=== PATIENT | male | born 1955 | race Caucasian/White ===

== ENCOUNTER 2018-04-22 18:44 | Inpatient (IN) | payer OTHER ==
[2018-04-22] MEDS ORDERED: ASPIRIN 81 MG CHEWABLE TAB ONE (19:07)
[2018-04-22] MEDS ORDERED: NITROGLYCERIN 0.4 MG BTL SL ONE ×2 (19:07→19:12)
[2018-04-22] MEDS ORDERED: ASPIRIN 81 MG CHEWABLE TAB PO ONE (19:12)
--- NOTE | 2018-04-22 19:18 | EDPHY ---
H & P Stated Complaint: sharp sternum pain, worked up at [employer], rad both arms and feet. Time Seen by Provider: 04/22/18 18:57 HPI/ROS: CHIEF COMPLAINT: Chest pain HISTORY OF PRESENT ILLNESS: 62-year-old male presents emergency department reporting that at 4:00 p.m. today he developed severe substernal chest discomfort with radiation into both arms. Reports that both arms feel achy. He reports feeling quite weak and dizzy. Patient had episode of similar discomfort this morning, although not quite as severe. He reports about 20 min episode of substernal chest discomfort with radiation into the arms. Patient was evaluated at [facility] at that time. Patient does state that he has a history of GERD but this feels different because it occurred while he was sitting upright. REVIEW OF SYSTEMS: Limited secondary to patient's clinical condition. Denies cold or cough symptoms. Denies prior history of chest discomfort. PAST MEDICAL HISTORY: Diabetes, hypertension, high cholesterol, peptic ulcer disease. Patient reports a strong family history of coronary artery disease with his mother dying of a heart attack at 42. SOCIAL HISTORY: Nonsmoker. VITAL SIGNS Reviewed by me. 158/102. GENERAL: Overweight, lying with his eyes closed. Reports being in severe pain , 10/10. HEENT: Atraumatic. Eyes: No icterus, no injection. Mouth: moist mucous membranes. No erythema or lesions. Neck: supple with no adenopathy. No JVD. LUNGS: Diminished breath sounds throughout. No wheezes. CARDIAC: Slightly distant, regular rate and rhythm. ABDOMEN: Soft, obese, nontender. BACK: No CVA tenderness. EXTREMITIES: No trauma. No edema. Range of motion is normal throughout. NEURO: Alert and oriented, grossly nonfocal. SKIN: Warm and dry, no rash. No diaphoresis. PSYCHIATRIC: Normal mentation, no agitation. - Personal History Current Tetanus/Diphtheria Vaccine: Unsure - Medical/Surgical History Hx Asthma: No Hx Chronic Respiratory Disease: No Hx Diabetes: Yes Hx Cardiac Disease: No Hx Renal Disease: No Hx Cirrhosis: No Hx Alcoholism: No Hx HIV/AIDS: No Hx Splenectomy or Spleen Trauma: No Other PMH: diabetes/hernias/umbilical hernia, GERD - Social History Smoking Status: Former smoker Constitutional: Initial Vital Signs Temperature (C) 36.2 C 04/22/18 18:48 Heart Rate 70 04/22/18 18:48 Respiratory Rate 16 04/22/18 18:48 Blood Pressure 152/102 H 04/22/18 18:48 O2 Sat (%) 95 04/22/18 18:48 O2 Delivery Mode Nasal Cannula O2 (L/minute) 6 Allergies/Adverse Reactions: No Known Allergies Allergy (Verified 04/22/18 18:48) Home Medications: Medication Instructions Recorded Aspirin EC [Aspirin EC 81 mg (*)] 81 mg PO DAILY 04/22/18 Cimetidine 200 mg PO DAILY 04/22/18 FENOFIBRATE 160 mg PO DAILY 04/22/18 Gemfibrozil [Lopid 600 MG (*)] 600 mg PO BID 04/22/18 Insulin Detemir [Levemir] 25 unit SQ DAILY 04/22/18 Levothyroxine [Synthroid 150 mcg 150 mcg PO DAILY06 04/22/18 (*)] Lisinopril [Zestril 10 mg (*)] 10 mg PO DAILY 04/22/18 Sitagliptin Phos/Metformin HCl 1 each PO BID 04/22/18 [Janumet 50-1,000 mg Tablet] glipiZIDE [Glucotrol] 5 mg PO BID 04/22/18 Medical Decision Making - Diagnostics EKG Interpretation: 12-LEAD EKG: Please see the full report in [facility]. My interpretation: Acute anterior infarct with ST elevation significant in V1 and upsloping ST segments in V2 V3 Imaging Results: Imaging Impressions Chest X-Ray 04/22/18 19:15 Impression: 1. Findings of congestive heart failure with possible pending pulmonary edema. 2. Basilar atelectasis with no findings to suggest pneumonia. Portable chest x-ray obtained. No significant mediastinal widening. Imaging: I viewed and interpreted images myself ED Course/Re-evaluation: EKG obtained immediately on patient's arrival. EKG read by myself as demonstrating an acute anterior NE with ST elevation in V1 V2 V3. Patient received aspirin 324 mg as well as his 1st nitroglycerin. Cardiac alert was immediately called. Dr. Torres returned the call at 7:15 p.m.. Patient's bedside troponin is positive at 0.62. 740 p.m. Patient received nitroglycerin x3 with only slight improvement in his chest discomfort, from 10/10 to 8/10. He reports feeling poorly. Dr. Prosper Torres at bedside. Patient received Plavix 600 mg as well as 2 mg of morphine. He was transported to the clinical laboratory director emergently. Critical care time spent by me, Dr. Anna exclusively with this patient was 35 minutes, exclusive of PA time and exclusive of procedures. The organ system at risk was cardiac and I gave nitroglycerin, aspirin, Plavix, activated the clinical laboratory director, discussed with Dr. Prosper Torres to prevent worsening of the patients condition. Critical care time included obtaining history, performing a physical exam, bedside monitoring of interventions, collecting and interpreting tests and discussion with consultants but not including time spent performing procedures. Differential Diagnosis: After history and physical examination, the differential for chest pain was considered, including but not limited to, acute myocardial infarction,, acute coronary syndrome, pulmonary embolus, chest wall pain, pleural inflammation and pulmonary infectious causes. - Data Points Laboratory Results: Laboratory Results 04/22/18 19:00 04/22/18 19:00 04/22/18 04/22/18 04/22/18 19:06 19:00 19:00 WBC RBC Hgb Hct MCV MCH MCHC RDW Plt Count MPV Neut % (Auto) Lymph % (Auto) Butts % (Auto) Eos % (Auto) Baso % (Auto) Nucleat RBC Rel Count Absolute Neuts (auto) Absolute Lymphs (auto) Absolute Monos (auto) Absolute Eos (auto) Absolute Basos (auto) Absolute Nucleated RBC Immature Gran % Immature Gran # PT 12.9 SEC SEC (12.0-15.0) INR 0.95 (0.83-1.16) APTT 31.2 SEC SEC (23.0-38.0) Sodium 134 mEq/L L mEq/L (135-145) Potassium 4.3 mEq/L mEq/L (3.5-5.2) Chloride 96 mEq/L L mEq/L (97-110) Carbon Dioxide 24 mEq/l mEq/l (22-31) Anion Gap 14 mEq/L mEq/L (6-14) BUN 23 mg/dL mg/dL (7-23) Creatinine 1.1 mg/dL mg/dL (0.7-1.3) Estimated GFR > 60 Glucose 252 mg/dL H mg/dL (70-100) Calcium 10.3 mg/dL mg/dL (8.5-10.4) Total Bilirubin 0.5 mg/dL mg/dL (0.1-1.4) Conjugated Bilirubin 0.3 mg/dL mg/dL (0.0-0.5) Unconjugated Bilirubin 0.2 mg/dL mg/dL (0.0-1.1) AST 32 IU/L IU/L (17-59) ALT 39 IU/L IU/L (21-72) Alkaline Phosphatase 100 IU/L IU/L (38-126) POC Troponin I 0.62 ng/mL H ng/mL (0.00-0.08) Troponin I 0.460 ng/mL H ng/mL (0.000-0.034) Total Protein 8.0 g/dL g/dL (6.3-8.2) Albumin 4.8 g/dL g/dL (3.5-5.0) Lipase 751 IU/L H IU/L (23-300) 04/22/18 19:00 WBC 15.40 10^3/uL H 10^3/uL (3.80-9.50) RBC 5.59 10^6/uL 10^6/uL (4.40-6.38) Hgb 16.8 g/dL g/dL (13.7-17.5) Hct 49.3 % % (40.0-51.0) MCV 88.2 fL fL (81.5-99.8) MCH 30.1 pg pg (27.9-34.1) MCHC 34.1 g/dL g/dL (32.4-36.7) RDW 12.7 % % (11.5-15.2) Plt Count 232 10^3/uL 10^3/uL (150-400) MPV 11.4 fL fL (8.7-11.7) Neut % (Auto) 78.8 % H % (39.3-74.2) Lymph % (Auto) 14.3 % L % (15.0-45.0) Butts % (Auto) 5.2 % % (4.5-13.0) Eos % (Auto) 0.7 % % (0.6-7.6) Baso % (Auto) 0.4 % % (0.3-1.7) Nucleat RBC Rel Count 0.0 % % (0.0-0.2) Absolute Neuts (auto) 12.13 10^3/uL H 10^3/uL (1.70-6.50) Absolute Lymphs (auto) 2.20 10^3/uL 10^3/uL (1.00-3.00) Absolute Monos (auto) 0.80 10^3/uL 10^3/uL (0.30-0.80) Absolute Eos (auto) 0.11 10^3/uL 10^3/uL (0.03-0.40) Absolute Basos (auto) 0.06 10^3/uL 10^3/uL (0.02-0.10) Absolute Nucleated RBC 0.00 10^3/uL 10^3/uL (0-0.01) Immature Gran % 0.6 % % (0.0-1.1) Immature Gran # 0.10 10^3/uL 10^3/uL (0.00-0.10) PT INR APTT Sodium Potassium Chloride Carbon Dioxide Anion Gap BUN Creatinine Estimated GFR Glucose Calcium Total Bilirubin Conjugated Bilirubin Unconjugated Bilirubin AST ALT Alkaline Phosphatase POC Troponin I Troponin I Total Protein Albumin Lipase Medications Given: Nitroglycerin (Nitrostat) 0.4 mg SL Q5M PRN PRN Reason: Chest Pain Last Admin: 04/22/18 19:27 Dose: 0.4 mg Discontinued Medications Aspirin (Aspirin) 324 mg PO EDNOW ONE Stop: 04/22/18 19:13 Last Admin: 04/22/18 19:14 Dose: 324 mg Clopidogrel Bisulfate (Plavix) 600 mg PO ONCE ONE Stop: 04/22/18 19:41 Last Admin: 04/22/18 19:43 Dose: 600 mg Morphine Sulfate (Morphine) 1 mg IVP EDNOW ONE Stop: 04/22/18 19:42 Last Admin: 04/22/18 19:47 Dose: Not Given Morphine Sulfate (Morphine) 2 mg IVP EDNOW ONE Stop: 04/22/18 19:48 Last Admin: 04/22/18 19:47 Dose: 2 mg Nitroglycerin (Nitrostat) 0.4 mg SL EDNOW ONE Stop: 04/22/18 19:13 Last Admin: 04/22/18 19:11 Dose: 0.4 mg Point of Care Test Results: Chemistry 04/22/18 19:06 POC Troponin I 0.62 ng/mL H ng/mL (0.00-0.08) Departure - Departure Disposition: To OP Cath/Surgery Clinical Impression: ST elevation (STEMI) myocardial infarction involving left anterior descending coronary artery, Acute anterior wall NE, Acute coronary syndrome Condition: Serious
[2018-04-22] MEDS: NITROGLYCERIN 0.4 MG BTL SL PRN ×2 (19:21→19:27)
[2018-04-22 19:37] LABS: PLATELET COUNT 232 10^3/uL (150-400)
[2018-04-22] MEDS ORDERED: fentaNYL 100 MCG/2 ML INJ ONE (19:38)
[2018-04-22] MEDS ORDERED: MIDAZOLAM 2 MG/2 ML VIAL ONE (19:38)
[2018-04-22] MEDS ORDERED: LIDOCAINE 1% 300 MG/30 ML SDV ONE (19:38)
[2018-04-22] MEDS ORDERED: IOPAMIDOL (ISOVUE-370) 150 ML BTL IV ONE (19:38)
[2018-04-22] MEDS ORDERED: CLOPIDOGREL BISULFATE 75 MG TAB PO ONE (19:40)
[2018-04-22] MEDS ORDERED: VERAPAMIL 5 MG/2 ML VIAL ONE (19:55)
[2018-04-22] MEDS ORDERED: BIVALIRUDIN 250 MG/5 ML VIAL IV ONE (19:55)
[2018-04-22 19:56] LABS: INR 0.95 (0.83-1.16); PROTIME(PATIENT) 12.9 SEC (12.0-15.0)
[2018-04-22] MEDS ORDERED: METOPROLOL TARTRATE 5 MG/5 ML INJ ONE (20:13)
[2018-04-22] MEDS ORDERED: LORazepam 2 MG/ML INJ IVP PRN (20:41)
--- NOTE | 2018-04-22 20:56 | PDDXCAT ---
Diagnostic Cath Note - . Date: 04/22/18 Swedger: Brian Indication: other (STEMI anterior) - Procedure Access: right wrist Procedure: left heart catheterization, coronary angiography, left ventriculogram - Materials Left Heart Cath size: 6F Left Heart Cath materials: standard multipack (JL4, JR4, pigtail) - Findings-Left Heart Catheterization LM: Unobstructed LAD: 100% OCCLUDED LCX: [place] 95% stenosis. Large OM RCA: Dominant: Unobstructed. EDP: 35 mmHg post PCI LVEF: 30% Wall motion: Large area of anterior apical akinesis Complications: none Estimated blood loss: <50ml Closure method: TR Band Assessment: STEMI with thrombotic occlusion of the LAD. Residual crital circumflex stenosis. Severe LV dysfunction with kody-apical akinesis and elevated LVEDP Plan: PCI Intervention: Procedure: PCI of the LAD with placement of 4.0 by 24 Synergy Stent For details please see the attached computer report. The initial images were obtained with a 6 pashto JL4 guiding catheter. After confirming diagnosis, we proceeded with emergency PCI. Patient was given 600 mg of Plavix in the ed. He was started on Angiomax once sheath was placed. Using a 0.014 intuition wire, the LAD was entered. The wire advanced easily to the apical LAD territory. Initial inflation was performed with a 2 mm balloon re- establishing antegrade flow. A 4.0 by 24 mm Synergy stent was placed on the wire and positioned across the stenosis. It was deployed using a single inflation to 11 bell. Repeat angiogram revealed JE 3 flow to the apex. The principle diagonal had JE 1-2 flow. Therapeutic ACT was confirmed. Diagnostic angiogram of the RCA and ventricle was performed. Telemetry suggested recurrent ST elevation. A 5french JL4 was used to re-look at the LAD. Stent was widely patent. Improved flow in the principle diagonal. Symptoms had improved with stable hemodynamics. He was administer 15 mg of metoprolol in a divided fashion. He is taken to the ICU in stable but critical condition. Will consider PCI of the circumflex prior to discharge. Patient Problems: Problems Problem Status Onset ST elevation (STEMI) myocardial infarction involving left anterior descending coronary artery Acute
--- NOTE | 2018-04-22 21:00 | SOAPPROG ---
[facility] Progress Note Assessment/Plan: Assessment: Problem List: 1. STEMI with occlusion of the LAD 2. Residual circumflex stenosis 3. ischemic cardiomyopathy: acute 4. hypertension 5. Hyperlipidemia 6. Diabetes type 2 7. Hypothyroidism 8. Obesity 04/22/18 20:57 Procedure: PCI of the LAD 04/22 Objective: Vital Signs Temp Pulse Resp BP Pulse Ox 36.7 C 74 13 123/82 H 93 04/22/18 19:50 04/22/18 19:50 04/22/18 19:50 04/22/18 19:50 04/22/18 19:50 04/21/18 04/22/18 04/23/18 05:59 05:59 05:59 Intake Total 2350 Balance 2350 PT 12.9 SEC (12.0-15.0) 04/22/18 19:00 INR 0.95 (0.83-1.16) 04/22/18 19:00 Laboratory Tests 04/22/18 04/22/18 04/22/18 19:00 19:00 19:06 WBC 15.40 H Hgb 16.8 Hct 49.3 Sodium 134 L Glucose 252 H POC Troponin I 0.62 H Troponin I 0.460 H Lipase 751 H Physical Exam - Physical Exam General Appearance: mild distress Neck: supple Respiratory: lungs clear Cardiac/Chest: regular rate, rhythm, gallop, No JVD Peripheral Pulses: 1+: carotid (R), carotid (L), femoral (R), femoral (L) Abdomen: normal bowel sounds, non-tender Skin: warm/dry, No cyanosis, No rash Extremities: normal range of motion, non-tender, No pedal edema, No calf tenderness Neuro/Psych: no motor/sensory deficits, alert, No facial droop ICD10 Worksheet Patient Problems: Problems Problem Status Onset ST elevation (STEMI) myocardial infarction involving left anterior descending coronary artery Acute
--- NOTE | 2018-04-22 21:03 | GHP ---
[f rep st] HISTORY AND PHYSICAL CARDIAC ALERT 04/22/2018 I am called to the emergency department by Dr. Ginette Anna to visit with the patient. He is A 62 YO white male. He was in his usual state of good health until 2 days ago, when he developed the acute onset of substernal chest pain. He thought this was reflux. The pain waxed and waned. Today, he was at his desk, again developed symptoms. He went to the [facility], where he was evaluated. He was told at that point in time that this was reflux. He went home. He developed again the acute onset of severe 10/10 discomfort. It was associated with diaphoresis, shortness of breath, nausea. He came to the emergency department by car. On arrival, EKG showed significant ST elevation in his anterior precordial leads. On my arrival, he is having 10/ 10 discomfort. He is diaphoretic and sweaty. CARDIAC RISK: Includes hypertension, hyperlipidemia, type 2 diabetes. ALLERGIES: He has no known drug allergies. MEDICINES: Reviewed and in the chart per pharmacy. PHYSICAL EXAMINATION: VITAL SIGNS: On my arrival, heart rate is 82, blood pressure 123/70, oxygen saturation 92%, respiratory rate 18. GENERAL: This is a morbidly obese male in moderate to severe distress. He is diaphoretic, sweaty. HEENT: Significant for JVP at 13 cm. CHEST: Reveals his lungs to be clear. Palpation of the anterior chest wall reveals no RV lift. CARDIAC: He has a regular rate and rhythm with an S4 gallop. Radial pulses are +2. His carotid pulses are +2. Femoral pulses are +1. Dorsalis pedis pulses are +2 and equal. SKIN: There is no livedo reticularis. There is no rash. ABDOMEN: Soft, nontender, with no tenderness to palpation. He has no rebound or guarding. NEUROLOGICALLY: He is alert and oriented. He is clearly anxious. He is moving extremities well. Sensation grossly intact. DIAGNOSTIC TESTING: EKG shows acute anterior ST elevation. LABORATORY DATA: Pending. IMPRESSION: ST-segment elevation myocardial infarction involving the anterior wall. In light of morbid obesity and increased risk, will plan for radial artery access from the right. Risk stratification/modification will be discussed postprocedure. Differential diagnosis will be broadened post procedure if need be. At the present time, he is hemodynamically stable. Risks and benefits of cardiac cath and stent placement were discussed. We will proceed urgently. /[id number]/MODL MTDD
--- NOTE | 2018-04-22 21:45 | CPEKG ---
Test Reason : OPEN Blood Pressure : / mmHG Vent. Rate : 068 BPM Atrial Rate : 068 BPM P-R Int : 144 ms QRS Dur : 097 ms QT Int : 401 ms P-R-T Axes : 035 023 061 degrees QTc Int : 427 ms Sinus rhythm Ventricular premature complex Probable anterior infarct, acute Confirmed by Kamar Miner ([id number]) on 04/22/2018 9:44:51 PM Referred By: Ginette Anna Confirmed By:Kamar Miner
[2018-04-22 23:02] LABS: CREATINE KINASE 4388 IU/L (0-224)
[2018-04-23 01:57] LABS: CREATINE KINASE 5644 IU/L (0-224)
[2018-04-23 04:31] LABS: CREATINE KINASE 4654 IU/L (0-224)
[2018-04-23 06:39] LABS: PLATELET COUNT 218 10^3/uL (150-400)
--- NOTE | 2018-04-23 07:33 | SOAPPROG ---
[facility] Progress Note Assessment/Plan: Assessment: Problem List: 1. STEMI with occlusion of the LAD 2. Residual circumflex stenosis 3. ischemic cardiomyopathy: acute 4. hypertension 5. Hyperlipidemia 6. Diabetes type 2 7. Hypothyroidism 8. Obesity 04/22/18 20:57 Procedure: PCI of the LAD 04/2204/23/18 07:30 Day 1 s/p anterior [place] with PCI of the LAD. residual Cx stenosis. No angina or heart failure. Stable rhythm. Tolerating medical therapy well. CPK, troponin have peaked. Transfer telemetry Phase 1 rehabilitation. Await recovery of the anterior wall PCI of the Cx. at some point. Echo pending for LV recovery. Lipids and A1c pending for risk evaluation. Subjective: Doing well. Chest pain down to 10. No nausea or vomiting. Denies PND, orthopnea. Tele stable overnight. CPK and troponin have peaked. Objective: Medications Generic Name Dose Route Start Last Admin Trade Name Freq PRN Reason Stop Dose Admin Insulin Glargine 25 units 04/23/18 09:00 Lantus Syringe SC 10/20/18 08:59 DAILY [facility] Aspirin Buffered 81 mg 04/23/18 09:00 Aspirin Ec PO 10/20/18 08:59 DAILY [facility] Atorvastatin Calcium 80 mg 04/23/18 09:00 Lipitor PO 10/20/18 08:59 DAILY [facility] Carvedilol 6.25 mg 04/23/18 08:00 Coreg PO 10/20/18 07:59 BIDMEAL [facility] Eplerenone 25 mg 04/23/18 09:00 Inspra PO 10/20/18 08:59 DAILY [facility] Furosemide 20 mg 04/23/18 09:00 Lasix PO 10/20/18 08:59 DAILY [facility] Glipizide 5 mg 04/23/18 07:30 Glucotrol PO 10/20/18 07:29 BIDAC [facility] Levothyroxine Sodium 150 mcg 04/23/18 06:00 Synthroid PO 10/20/18 05:59 DAILY06 [facility] Lisinopril 2.5 mg 04/23/18 09:00 Zestril PO 10/20/18 08:59 DAILY [facility] Vital Signs Temp Pulse Resp BP Pulse Ox 36.9 C 83 15 101/81 H 96 04/23/18 05:00 04/23/18 06:00 04/23/18 06:00 04/23/18 06:00 04/23/18 06:00 Laboratory Results 04/23/18 06:20 04/23/18 06:20 04/22/18 04/23/18 04/24/18 05:59 05:59 05:59 Intake Total 3200 Output Total 1050 Balance 2150 PT 12.9 SEC (12.0-15.0) 04/22/18 19:00 INR 0.95 (0.83-1.16) 04/22/18 19:00 Laboratory Tests 04/22/18 04/23/18 04/23/18 21:37 00:42 06:20 Creatinine 0.9 Glucose 200 H Creatine Kinase 4388 H 5644 H CK-MB (CK-2) Fraction 134.00 H 211.00 H Troponin I 113.000 H 197.000 H NT-Pro-B Natriuret Pep 797 H Physical Exam - Physical Exam General Appearance: alert, no apparent distress EENT: normal ENT inspection Neck: full range of motion Respiratory: rales Cardiac/Chest: normal peripheral pulses, regular rate, rhythm, gallop, No edema , No JVD Peripheral Pulses: 1+: carotid (R), carotid (L) Abdomen: normal bowel sounds, non-tender, soft Back: Normal inspection, No CVA tenderness Skin: diaphoresis Extremities: normal range of motion, non-tender Neuro/Psych: no motor/sensory deficits, alert, No facial droop ICD10 Worksheet Patient Problems: Problems Problem Status Onset Acute anterior wall [place] Acute Acute coronary syndrome Acute ST elevation (STEMI) myocardial infarction involving left anterior descending coronary artery Acute Review of Systems - Review of Systems Constitutional: denies: chills, fever EENTM: no symptoms reported Respiratory: no symptoms reported Cardiac: chest pain. denies: edema, irregular heart rate, lightheadedness, palpitations, syncope Gastrointestinal/Abdominal: no symptoms reported Genitourinary: no symptoms Musculoskelatal: no symptoms Skin: no symptoms Neurological: no symptoms Hematologic/Lymphatic: no symptoms reported Immunologic/allergic: no symptoms reported
[2018-04-23] MEDS: LEVOTHYROXINE 150 MCG TAB PO SCH (07:39)
[2018-04-23] MEDS: glipiZIDE 5 MG TAB PO SCH ×2 (07:40→18:01)
[2018-04-23 08:29] LABS: CREATINE KINASE 3005 IU/L (0-224)
[2018-04-23] MEDS: ATORVASTATIN CALCIUM 40 MG TAB PO SCH (08:40)
[2018-04-23] MEDS: LISINOPRIL 5 MG TAB PO SCH (08:41)
[2018-04-23] MEDS: ASPIRIN EC 81 MG TAB PO SCH (08:41)
[2018-04-23] MEDS: EPLERENONE 25 MG TAB PO SCH (08:41)
[2018-04-23] MEDS: CARVEDILOL 6.25 MG TAB PO SCH ×2 (08:42→18:01)
[2018-04-23] MEDS: FUROSEMIDE 20 MG TAB PO SCH (08:42)
[2018-04-23] MEDS: INSULIN GLARGINE 100 UNITS/ML UNIT SC SCH (09:43)
--- NOTE | 2018-04-23 10:45 | PDMN ---
Medical Necessity Medical necessity: MCG M230 NM- 2 days: acute STEMI- OP: urgent LHC, angio , LVR -PCI to LAD
--- NOTE | 2018-04-23 11:22 | ECHO ---
[email or web address] [address] Main: [phone] Fax: Transthoracic Echocardiogram Name: DOMI GRIMES MR#: [id number] Study Date: 04/23/2018 Study Time: 10:33 AM Date of : 1955 Age: 62 year(s) Height: 188 cm (74 in.) Weight: 127.01 kg (280 lb.) BSA: 2.51 m2 Gender: Male Examination: Echo Indication: S/P RI; assess LV recovery Image Quality: Adequate Contrast: Requested by: Prosper Torres BP: 107 mmHg/67 mmHg Heart Rate: Rhythm: Indication: S/P RI; assess LV recovery Procedure Staff Wire Spinner: Cherie Rouse [facility] Reading Physician: Brandon Nguyen MD Requesting Provider: Conclusions: Normal size left ventricle. Mild concentric LV hypertrophy. EF is 38 %. The basal anteroseptal, mid anteroseptal, mid inferoseptal, mid anterolateral, apical septal, apical lateral and apex No LV apical thrombus. Normal RV function. Mild mitral valve regurgitation is present. The aortic valve is tri-leaflet. No aortic valve stenosis is present. Mild tricuspid regurgitation is present. Right ventricular systolic pressure measures 48mmHg. The pulmonary artery pressure is mild to moderately increased. There is no previous echocardiogram for comparison. Measurements: Chambers Valvular Assessment AV/MV Valvular Assessment TV/PV Normal Normal Normal Name Value Range Name Value Range Name Value Range Ao Consuelo (MM): 3.4 cm (2.2 cm-3.7 AV Vmax: 1.33 m/s (1 m/s-1.7 TR Vmax: 3.10 mm/s ( - ) cm) m/s) TR PGmax: 38 mmHg ( - ) IVSd (2D): 1.2 cm (0.6 cm-1.1 AV maxP mmHg ( - ) syst. PAP: 48 mmHg ( - ) cm) LVOT Vmax: 1.18 m/s (0.7 m/s-1.1 PV Vmax: 0.85 m/s (0.6 m/s-0.9 LVDd (2D): 5.2 cm (4.2 cm-5.9 m/s) m/s) cm) DEDE (Vmax): 2.8 cm2 ( - ) PV PGmax: 3 mmHg ( - ) LVDs (2D): 4.1 cm (2.1 cm-4 MV E Vmax: 0.99 m/s ( - ) cm) MV A Vmax: 0.69 m/s ( - ) LVPWd (2D): 1.1 cm (0.6 cm-1 MV E/A: 1.43 ( - ) cm) LVOTd 2.0 cm 2.0 cm mm Patient: DOMI GRIMES Study Date: 04/23/2018 Page 1 of 3 10:33 AM LVEF (BP): 38 % (>=55 %) RVDd(2D): 3.5 cm (1.9 cm-3.8 cmmm) Continued Measurements: Chambers Valvular Assessment AV/MV Valvular Assessment TV/PV Name Value Name Value Name Value LADs: 3.9 cm MV DecTime: 197 m/s CVP (est.): 10 mmHg LADs Lon.7 cm MV E' Septal: 0.04 m/s LA Area: 17.7 cm2 MV E/E' Septal: 22.10 LA Volume: 49 ml MV E/E' Lateral: 18.50 LA Volume Index: 19.5 ml/m2 TAPSE: 2.2 cm RA Area: 16.5 cm2 Additional Vessels Name Value Ao Ascendin.8 cm Findings: Left Ventricle: Normal size left ventricle. Mild concentric LV hypertrophy. Moderately reduced systolic LV function. EF is 38 %. The basal anteroseptal, mid anteroseptal, mid inferoseptal, mid anterolateral, apical septal, apical lateral and apex wall segments are hypokinetic. All remaining scored wall segments are normal. Grade 2 diastolic dysfunction (pseudonormalized LV filling pattern). Elevated left ventricular filling pressures.. No LV apical thrombus. False tendon noted in LV apex. Right Ventricle: Normal size right ventricle. Normal RV function. Left Atrium: The left atrium is normal in size. Right Atrium: The right atrium is normal in size. Mitral Valve: There is mild thickening of the mitral valve leaflets. Mild mitral valve regurgitation is present. No mitral stenosis is present. Aortic Valve: The aortic valve is tri-leaflet. Minimal aortic cusp calcification is noted. There is no aortic valve regurgitation. No aortic valve stenosis is present. Tricuspid Valve: The tricuspid valve is normal in appearance and function. Mild tricuspid regurgitation is present. Right ventricular systolic pressure measures 48mmHg. The pulmonary artery pressure is mild to moderately increased. Pulmonic Valve: Pulmonary valve not well visualized. Trivial pulmonic valve regurgitation. Aorta: Normal size aortic root measuring 3.4 cm. Normal size ascending aorta measuring 3.8 cm. IVC: The IVC is mildly dilated. There is less than 50% respiratory excursion. Pericardium: Trivial pericardial effusion. There is pericardial fat. (No Signature Object) Wall Motion Scores Patient: DOMI GRIMES Study Date: 04/23/2018 Page 2 of 3 10:33 AM Patient: DOMI GRIMES Study Date: 04/23/2018 Page 3 of 3 10:33 AM [id number]
[2018-04-23] MEDS: CLOPIDOGREL BISULFATE 75 MG TAB PO SCH (13:02)
[2018-04-23 16:17] LABS: CREATINE KINASE 1429 IU/L (0-224)
[2018-04-23] MEDS ORDERED: AMIODARONE HCL 150 MG/100 ML BAG (1.5 MG/ML) IV ONE ×2 (16:37→20:58)
[2018-04-23] MEDS ORDERED: APIXABAN 5 MG TAB PO SCH (16:45)
[2018-04-23] MEDS ORDERED: HEPARIN 10,000 UNIT/10 ML MDV (1,000 UNIT/ML) IVP PRN (16:57)
[2018-04-23] MEDS ORDERED: AMIODARONE HCL 200 ML IV ONE (17:00)
[2018-04-23] MEDS ORDERED: AMIODARONE HCL 100 ML IV ONE ×2 (17:00→21:00)
[2018-04-23] MEDS ORDERED: AMIODARONE HCL 150 MG in D5W 100 ML IV ONE (17:00)
[2018-04-23] MEDS: HEPARIN/DEXTROSE 500 ML IV SCH (17:12)
[2018-04-23] MEDS ORDERED: ONDANSETRON 4 MG/2 ML VIAL ONE (19:10)
[2018-04-23] MEDS ORDERED: ONDANSETRON 4 MG/2 ML VIAL IVP PRN (19:30)
--- NOTE | 2018-04-23 20:06 | ASMTCMCOM ---
CM Note CM Note Notes: Reviewed chart. Pt admitted with sharp sternal chest pain, secondary to a STEMI with LAD occlusion. Pt taken directly to laborer syrup machine. History includes HTN, hyperlipidemia, DM type 2, obesity, hypothyroid. Pt is single and lives in [place]. Discharge needs remain unclear at this time. No PT/OT orders. Anticipate pt will likely discharge home independently when medically stable. CM will continue to follow for any potential needs. Discharge Plan: Likely home independent Date Signed: 04/23/2018 08:05 PM Electronically Signed By:Jeannine Martinez RN
[2018-04-23] MEDS ORDERED: AMIODARONE 6HR INFSN (ORDER 2/3) PREMIX IV ONE (21:00)
[2018-04-23] MEDS ORDERED: AMIODARONE TACHY-18HR INFSN (ORDER 3/3) IV ONE (23:00)
[2018-04-24] MEDS ORDERED: AMIODARONE 18HR INFSN (ORDER 3/3) IV ONE (03:00)
[2018-04-24] MEDS: HEPARIN/DEXTROSE 500 ML IV SCH (03:34)
[2018-04-24] MEDS: LEVOTHYROXINE 150 MCG TAB PO SCH (05:37)
[2018-04-24] MEDS: INSULIN GLARGINE 100 UNITS/ML UNIT SC SCH (08:10)
[2018-04-24] MEDS: glipiZIDE 5 MG TAB PO SCH (08:12)
[2018-04-24] MEDS: CARVEDILOL 6.25 MG TAB PO SCH ×2 (08:12→17:33)
[2018-04-24] MEDS: EPLERENONE 25 MG TAB PO SCH (08:30)
[2018-04-24] MEDS: FUROSEMIDE 20 MG TAB PO SCH (08:30)
[2018-04-24] MEDS: CLOPIDOGREL BISULFATE 75 MG TAB PO SCH (08:30)
[2018-04-24] MEDS: LISINOPRIL 5 MG TAB PO SCH (08:30)
[2018-04-24] MEDS: ASPIRIN EC 81 MG TAB PO SCH (08:30)
[2018-04-24] MEDS: ATORVASTATIN CALCIUM 40 MG TAB PO SCH (08:30)
[2018-04-24] MEDS ORDERED: RIVAROXABAN 20 MG TAB PO SCH (10:15)
[2018-04-24 10:37] LABS: PLATELET COUNT 142 10^3/uL (150-400)
--- NOTE | 2018-04-24 10:37 | CPEKG ---
Test Reason : OPEN Blood Pressure : / mmHG Vent. Rate : 074 BPM Atrial Rate : 075 BPM P-R Int : 134 ms QRS Dur : 096 ms QT Int : 386 ms P-R-T Axes : 045 059 061 degrees QTc Int : 429 ms Sinus rhythm Anterolateral infarct, recent Minimal ST elevation, inferior leads Confirmed by Brandon Nguyen ([id number]) on 04/24/2018 10:37:20 AM Referred By: Prosper Torres Confirmed By:Brandon Nguyen
--- NOTE | 2018-04-24 10:37 | CPEKG ---
Test Reason : OPEN Blood Pressure : / mmHG Vent. Rate : 060 BPM Atrial Rate : 060 BPM P-R Int : 125 ms QRS Dur : 096 ms QT Int : 408 ms P-R-T Axes : 003 065 071 degrees QTc Int : 408 ms Sinus rhythm Anterolateral infarct, recent ST elevation, consider inferior injury Confirmed by Brandon Nguyen ([id number]) on 04/24/2018 10:36:44 AM Referred By: NIA ROBERT Confirmed By:Brandon Nguyen
--- NOTE | 2018-04-24 10:40 | CPEKG ---
Test Reason : OPEN Blood Pressure : / mmHG Vent. Rate : 141 BPM Atrial Rate : 165 BPM P-R Int : 098 ms QRS Dur : 082 ms QT Int : 297 ms P-R-T Axes : 000 039 051 degrees QTc Int : 455 ms Atrial fibrillation Anterolateral infarct, acute (LAD) Confirmed by Brandon Nguyen ([id number]) on 04/24/2018 10:39:47 AM Referred By: NIA ROBERT Confirmed By:Brandon Nguyen
[2018-04-24] MEDS: AMIODARONE HCL 200 MG TAB PO SCH ×2 (11:11→17:33)
--- NOTE | 2018-04-24 14:28 | SOAPPROG ---
[facility] Progress Note Assessment/Plan: Assessment: Problem List: 1. STEMI with occlusion of the LAD 2. Residual circumflex stenosis 3. ischemic cardiomyopathy: acute 4. hypertension 5. Hyperlipidemia 6. Diabetes type 2 7. Hypothyroidism 8. Obesity Procedures PCI of the LAD 04/22 Echocardiogram 04/2304/23/18 07:30 Day 1 s/p anterior DC with PCI of the LAD. residual Cx stenosis. No angina or heart failure. Stable rhythm. Tolerating medical therapy well. CPK, troponin have peaked. Transfer telemetry Phase 1 rehabilitation. Await recovery of the anterior wall PCI of the Cx. at some point. Echo pending for LV recovery. Lipids and A1c pending for risk evaluation. 04/24/18 14:23 Day 2 s/p AMI Complicated now by PAF. Stable hemodynamics. Improved clinically. Mild hypoxia and hyperglycemia off oral agents. Resume Januvia Complete amiodarone load orally. Triple anticoagulation with asa/plavix for new stent. Xarelto for afib, large anterior DC with akinetic apex in the setting of hypertension. Staged PCI of the circumflex next 30 days pending LV recovery. We will see how the day goes. Patient would like to go home. Subjective: Stable overnight. Several episodes of PAF, rate controlled treated with amiodarone. Asymptomatic during events. Started on heparin in light of PAF, large anterior DC and risk of thrombo-embolism. Echo with large anterior DC. Based on CPK, likely late presentation with early peak. Reviewed all his medications today. Denies PND, orthopnea. No further chest pain, nausea or vomiting. Wants to go home. Objective: Vital Signs Temp Pulse Resp BP Pulse Ox 36.4 C 108 H 14 100/86 H 95 04/24/18 11:33 04/24/18 11:33 04/24/18 11:33 04/24/18 11:33 04/24/18 11:33 Laboratory Results 04/24/18 10:25 04/24/18 10:25 04/23/18 04/24/18 04/25/18 05:59 05:59 05:59 Intake Total 3200 1948 621 Output Total 1050 1050 200 Balance 2150 898 421 PT 12.9 SEC (12.0-15.0) 04/22/18 19:00 INR 0.95 (0.83-1.16) 04/22/18 19:00 ecg afib at 130. Anterior DC acute. Persistant ST elevation. Physical Exam - Physical Exam General Appearance: alert, no apparent distress EENT: normal ENT inspection Neck: non-tender, full range of motion Respiratory: lungs clear Cardiac/Chest: regular rate, rhythm, gallop, No JVD Peripheral Pulses: 1+: carotid (R), carotid (L) Abdomen: normal bowel sounds, non-tender, soft Skin: warm/dry, No rash Lymphatic: no adenopathy Extremities: normal range of motion Neuro/Psych: no motor/sensory deficits, alert, No facial droop ICD10 Worksheet Patient Problems: Problems Problem Status Onset Acute anterior wall DC Acute Acute coronary syndrome Acute ST elevation (STEMI) myocardial infarction involving left anterior descending coronary artery Acute Review of Systems - Review of Systems Constitutional: no symptoms reported EENTM: no symptoms reported Respiratory: no symptoms reported Cardiac: no symptoms reported Gastrointestinal/Abdominal: no symptoms reported Genitourinary: no symptoms Musculoskelatal: no symptoms Skin: no symptoms Neurological: no symptoms Hematologic/Lymphatic: no symptoms reported Immunologic/allergic: no symptoms reported
[2018-04-24 16:22] VITALS: BP 95/59
--- NOTE | 2018-04-24 21:50 | ASMTLACE ---
LACE Length of stay for Answers: 1 day current admission Acuity / Level of Answers: Yes Care: Did the patient have an inpatient admission? Comorbidities - select Answers: Coronary Artery Disease all that apply Diabetes (uncontrolled or controlled) Other Notes: Obesity, HTN, HLD, hypo thy roid # of Emergency department Answers: 1-2 visits in the last 6 months Score: 9 Date Signed: 04/24/2018 09:49 PM Electronically Signed By:Jeannine Martinez RN
--- NOTE | 2018-04-24 21:54 | ASDISCHSUM ---
Discharge Information Plan Status:Home with No Needs Medically Cleared to Leave:04/23/2018 Discharge Date:04/24/2018 05:45 PM CM D/C Disposition:Home, Routine, Self-Care ADT D/C Disposition:Home, Routine, Self-Care Projected Discharge Date:04/24/2018 05:45 PM Transportation at D/C:Family Discharge Delay Reason: Follow-Up Date:04/24/2018 05:45 PM Discharge Slot:2 - 12:01 pm - 18:00 pm Final Diagnosis:Acute anterior TN, chest pain, hyperlipidemia, HTN, hypothyroid, obesity Placement Information Patient Contact Information Contact Name:BRIGID Relationship:Daughter Address: Work Phone: City: [facility] Phone: [facility]/[employer] Code: Email: Financial Information Financial Class:HMO and PPO Plans Primary Plan Desc:[employer] PPO POS Primary Plan Number:[id number] Secondary Plan Desc: Secondary Plan Number: Assessment Information LACE LACE Length of stay for Answers: 1 day current admission Acuity / Level of Answers: Yes Care: Did the patient have an inpatient admission? Comorbidities - select Answers: Coronary Artery Disease all that apply Diabetes (uncontrolled or controlled) Other Notes: Obesity, HTN, HLD, hypo thy roid # of Emergency department Answers: 1-2 visits in the last 6 months Score: 9 Date Signed: 04/24/2018 09:49 PM Electronically Signed By:Jeannine Martinez RN [facility] Progress Note CM Note CM Note Notes: Reviewed chart. Pt admitted with sharp sternal chest pain, secondary to a STEMI with LAD occlusion. Pt taken directly to veterinary laboratory technician. History includes HTN, hyperlipidemia, DM type 2, obesity, hypothyroid. Pt is single and lives in [place]. Discharge needs remain unclear at this time. No PT/OT orders. Anticipate pt will likely discharge home independently when medically stable. CM will continue to follow for any potential needs. Discharge Plan: Likely home independent Date Signed: 04/23/2018 08:05 PM Electronically Signed By:Jeannine Martinez RN Case Management Discharge Plan Note Case Management Discharge Discharge Order Complete? Answers: Yes Patient to Obtain Answers: Independently Medications Transportation Arranged Answers: Family/Friends EMTALA Complete Answers: No Notes: N/A Case Management Transport Answers: No Notes: N/A Form Complete Faxed Final Orders Answers: No Notes: N/A Agency/Facility Transfer Answers: No Notes: N/A Report Printed & Faxed to Receiving Agency Family Notified Answers: No Notes: Pt to notify. Discharge Comments Notes: Reviewed chart regarding discharge plan of care, pt's progress. Per Dr. Torres, pt to discharge home independently with no identified needs today. No PT/OT orders. No IM/MAYO forms signed, not applicable. Pt to follow up as directed. CM available for any further issues or concerns. Discharge Plan: Home independently Date Signed: 04/24/2018 09:53 PM Electronically Signed By:Jeannine Martinez RN Intervention Information
--- NOTE | 2018-04-25 09:13 | PDDCSUM ---
Discharge Summary Discharge Summary: Admission diagnosis 04/22/2018 Discharge diagnosis 04/24/2018 Admission diagnosis anterior wall myocardial infarction/ST [facility] Discharge diagnosis anterior wall myocardial infarction status post PCI of the LAD, residual 90% stenosis of the circumflex artery,atrial fibrillation, ischemic cardiomyopathy ef < 30%, type 2 diabetes with hyperglycemia, hyperlipidemia, hypertension, obesity, sleep apnea, borderline hypoxemia, hypothyroidism. Procedures: Left heart catheterization coronary ventricular angiography PCI of the LAD in the setting of a cardiac alert Echocardiogram Follow-up Brian with BMP for glucose. Hospital course patient is a 62-year-old male admitted through the emergency department as a cardiac alert. He was found have acute anterior ST elevation with acute onset symptoms over 48 hr. He was taken the cardiac catheterization lab where he is found have a thrombotic lead occluded LAD. Underwent successful PCI and stenting. Left ventricular angiography showed a large anterior apical akinetic segment with an ejection fraction less than 30%. He had residual circumflex disease. His right coronary artery was non dominant. He was started on aggressive medical therapy including dual antiplatelet therapy , Arnaldo inhibition, beta-uyen,inspra. Over the course of the 1st 24 hr he developed paroxysmal atrial fibrillation. In light of the large akinetic anterior wall he was started on heparin. He was given amiodarone as a IV bolus x2 with a brief infusion. Patient converted spontaneously, however, continued to have paroxysms of rate controlled atrial fibrillation. He was asymptomatic. An echocardiogram showed persistent anterior apical akinesis. He was converted to triple anticoagulation with Xarelto, aspirin, Plavix. He was transitioned to oral amiodarone. He remained hemodynamically stable without recurrent symptoms. EKG showed persistent ST elevation. He had early peaking of his CPK and troponin. In assessing his risk, glucose was noted to be elevated associated with hyponatremia. His Januvia was restarted. Final sugars were trending downward. He was found have some hypoxia at rest. With aggressive respiratory therapy this was improving. His hemodynamics remained stable. He was discharged home and will be followed up by me over the next week to 10 days. Will resume his metformin after 2 days. Cardiac rehabilitation recommended. Will await LV recovery for at least 30 days before considering complete revascularization with PCI of the circumflex. Will plan to do this sooner for symptoms. Patient was discharged home in stable condition with follow-up as outlined above. Questions were answered. Prognosis somewhat guarded in the setting of large anterior wall myocardial infarction EF less than 30%, late presentation, atrial fibrillation.
== END 2018-04-24 17:45 | disposition home or self-care (01) | DRG 247 ==
LOC: FSGY 19:33 → F2N 19:34
PROVIDERS: ADMIT Internal Medicine Interventional Cardiology; ATTEND Internal Medicine Interventional Cardiology
PROC: 027034Z Dilation of Coronary Artery, One Artery with Drug-eluting Intraluminal Device, Percutaneous Approach (ICD-10-PCS; principal; 2018-04-22)
DX: I21.09 ST elevation (STEMI) myocardial infarction involving other coronary artery of anterior wall (principal); I48.91 Unspecified atrial fibrillation; I25.5 Ischemic cardiomyopathy; E11.65 Type 2 diabetes mellitus with hyperglycemia; E78.5 Hyperlipidemia, unspecified; I10 Essential (primary) hypertension; E66.01 Morbid (severe) obesity due to excess calories; G47.30 Sleep apnea, unspecified; E03.9 Hypothyroidism, unspecified; R09.02 Hypoxemia
CPT/HCPCS: 82947-QW; 84484-ER; 85520-90; 96374; C1725; C1769; C1874; C1887; C9606; J0282; J0583; J1644; J1815; J2250; J2270; J2405; J3010; Q9967

== ENCOUNTER → 2018-05-31 | Day surgery (SDC) | payer OTHER ==
[~2018-05-31] MED LIST: ASPIRIN EC 325 MG TAB PO ONE; DIAZEPAM 5 MG TAB PO ONE; FAMOTIDINE 20 MG TAB PO ONE; HEPARIN 10,000 UNIT/10 ML MDV (1,000 UNIT/ML) ONE; IOPAMIDOL (ISOVUE-370) 150 ML BTL IV ONE; LIDOCAINE 1% 300 MG/30 ML SDV ONE; MIDAZOLAM 2 MG/2 ML VIAL ONE; NS 1,000 ML IV ONE; VERAPAMIL 5 MG/2 ML VIAL ONE; diphenhydrAMINE 25 MG CAP PO ONE; fentaNYL 100 MCG/2 ML INJ ONE
[2018-05-31 08:07] LABS: PLATELET COUNT 173 10^3/uL (150-400)
[2018-05-31 08:17] LABS: INR 2.37 (0.83-1.16); PROTIME(PATIENT) 24.7 SEC (12.0-15.0)
--- NOTE | 2018-05-31 09:58 | PDCTREPORT ---
Cardiothoracic Procedure Rpt Cardiothoracic Procedure Report: Cancellation of cardiac catheterization. Patient is here today for revascularization of residual circumflex stenosis in the setting of anterior FL 30 days ago. He took his Xarelto this am. He has been pain free without heart failure. In light of increased risk with him anticoagulated, will cancel his procedure today and reschedule for Wednesday off medication. Patient Problems: Problems Problem Status Onset Acute anterior wall FL Acute Acute coronary syndrome Acute ST elevation (STEMI) myocardial infarction involving left anterior descending coronary artery Acute
--- NOTE | 2018-06-03 18:57 | CPEKG ---
Test Reason : OPEN Blood Pressure : / mmHG Vent. Rate : 059 BPM Atrial Rate : 059 BPM P-R Int : 155 ms QRS Dur : 093 ms QT Int : 477 ms P-R-T Axes : 062 -76 091 degrees QTc Int : 473 ms Sinus rhythm Probable left atrial enlargement Left anterior fascicular block Anterior infarct, age indeterminate Lateral leads are also involved Confirmed by Alfonso Wallis ([id number]) on 06/03/2018 6:57:28 PM Referred By: NIA ROBERT Confirmed By:Alfonso Wallis
== END | disposition home or self-care (01) ==
LOC: FCATH 07:03
PROVIDERS: ATTEND Internal Medicine Interventional Cardiology
DX: I21.09 ST elevation (STEMI) myocardial infarction involving other coronary artery of anterior wall (principal); Z53.09 Procedure and treatment not carried out because of other contraindication; Z79.01 Long term (current) use of anticoagulants; I48.91 Unspecified atrial fibrillation; I25.5 Ischemic cardiomyopathy; E11.65 Type 2 diabetes mellitus with hyperglycemia; E78.5 Hyperlipidemia, unspecified; I10 Essential (primary) hypertension; E66.01 Morbid (severe) obesity due to excess calories; G47.30 Sleep apnea, unspecified; E03.9 Hypothyroidism, unspecified; R09.02 Hypoxemia
CPT/HCPCS: J1644; J2250; J3010; Q9967

== ENCOUNTER 2018-06-03 06:15 | Day surgery (SDC) | payer OTHER ==
[2018-06-03] MEDS ORDERED: diphenhydrAMINE 25 MG CAP PO ONE ×2 (06:17→06:52)
[2018-06-03] MEDS ORDERED: DIAZEPAM 5 MG TAB PO ONE (06:17)
[2018-06-03] MEDS ORDERED: NS 1,000 ML IV ONE (06:17)
[2018-06-03] MEDS ORDERED: ASPIRIN EC 325 MG TAB PO ONE ×2 (06:17→06:52)
[2018-06-03] MEDS ORDERED: FAMOTIDINE 20 MG TAB PO ONE (06:17)
[2018-06-03] MEDS ORDERED: FAMOTIDINE 20 MG TAB ONE (06:52)
[2018-06-03] MEDS ORDERED: DIAZEPAM 5 MG TAB ONE (06:52)
[2018-06-03 07:07] LABS: PLATELET COUNT 179 10^3/uL (150-400)
[2018-06-03 07:16] LABS: INR 0.99 (0.83-1.16); PROTIME(PATIENT) 12.7 SEC (12.0-15.0)
[2018-06-03] MEDS ORDERED: fentaNYL 100 MCG/2 ML INJ ONE (07:35)
[2018-06-03] MEDS ORDERED: BIVALIRUDIN 250 MG/5 ML VIAL IV ONE ×2 (07:35→07:52)
[2018-06-03] MEDS ORDERED: MIDAZOLAM 2 MG/2 ML VIAL ONE (07:35)
[2018-06-03] MEDS ORDERED: IOPAMIDOL (ISOVUE-370) 150 ML BTL IV ONE ×2 (07:36→07:40)
[2018-06-03] MEDS ORDERED: VERAPAMIL 5 MG/2 ML VIAL ONE (07:37)
[2018-06-03] MEDS ORDERED: HEPARIN 10,000 UNIT/10 ML MDV (1,000 UNIT/ML) ONE (07:37)
--- NOTE | 2018-06-03 07:40 | PDPROPOC ---
Sedation Plan of Care Sedation Plan of Care: vital signs stable, mental status noted, patient educated of risks, benefits, alternatives, patient can tolerate sedation ASA Classification: ASA 2 Planned drugs: fentanyl, midazolam Mallampati Score: Class 2 Mallampati Reference Image: Patient passed 3-3-2 rule?: Yes
--- NOTE | 2018-06-03 07:40 | PDGENHP ---
History & Physical Chief Complaint: PCI of the circumflex History of Present Illness: 63-year-old male status post anterior wall myocardial infarction 30 days ago here for PCI of the circumflex to complete revascularization in the setting of an ischemic cardiomyopathy. Relevant Physical Exam: 43, 110/70,. Well-nourished well-developed male no distress. No JVP at 90 degrees. Chest is clear. Cardiac exam showed a regular rate and rhythm with occasional extrasystoles. Radial pulses are +2 and equal. Abdomen is soft nontender. Extremities are free of edema. Neurological he is alert and oriented with normal mood and affect. There is facial symmetry. He is moving extremities normally. Sensation grossly intact. Cardiorespiratory Assessment: Stable cardiovascular assessment with normal heart rate blood pressure. Physical examination does not suggest heart failure. Plan to proceed with PCI of the circumflex today for complete revascularization in the setting of an ischemic cardiomyopathy.
[2018-06-03] MEDS ORDERED: LIDOCAINE 1% 300 MG/30 ML SDV ONE (07:52)
[2018-06-03] MEDS ORDERED: NITROGLYCERIN 1,500 MCG/15 ML VIAL MISC ONE (08:05)
[2018-06-03] MEDS ORDERED: CLOPIDOGREL BISULFATE 75 MG TAB ONE (08:29)
--- NOTE | 2018-06-03 08:30 | PDDXCAT ---
Diagnostic Cath Note - . Date: 06/03/18 Dairy Farmer: Brian High-risk criteria on non-invasive testing: severe resting left ventricular dysfunction (LVEF<35%) - Procedure Access: right wrist Procedure: left heart catheterization, coronary angiography, left ventriculogram - Materials Left Heart Cath size: 6F Left Heart Cath materials: JL4.0, pigtail - Findings-Left Heart Catheterization LM: Unobstructed LAD: Lad stent widely patent. Luminal irregularity of 15% distal to the stent. LCX: 85% stenosis of the circumflex as it becomes the posterior descending coronary artery. EDP: 18 mm of mercury LVEF: 30% with large anterior apical akinetic segment Complications: None Estimated blood loss: <50ml Closure method: TR Band Assessment: Patent LAD stent with ischemic cardiomyopathy ejection fraction 30% . Residual dominant circumflex stenosis for PCI today. Intervention: Patient was anticoagulated with Angiomax. Using a 0.014 luge wire the circumflex artery stenosis was crossed and a wire placed in the distal posterior descending coronary artery. Initial attempt at primary stenting with a 2.25 x 16 mm synergy stent were made but failed. It was withdrawn. Lesion was pre-dilated with a 2 mm balloon. Repeat angiograms revealed antegrade flow. 2.25 stent was then easily placed across the lesion. Position was confirmed in two views. Stent was deployed using a single inflation. Repeat angiograms revealed step-up step-down with JE grade 3 flow. Wire was withdrawn. Conclusion successful PCI and stenting of the dominant circumflex artery. Plan for aggressive secondary prevention. Repeat assessment of LV function in 90 days considerations for ICD. Continue anticoagulation in the setting of atrial fibrillation and a significant ischemic cardiomyopathy in addition to single antiplatelet agent. Patient Problems: Problems Problem Status Onset Acute anterior wall SD Acute Acute coronary syndrome Acute ST elevation (STEMI) myocardial infarction involving left anterior descending coronary artery Acute
[2018-06-03] MEDS ORDERED: LISINOPRIL 5 MG TAB PO SCH (09:00)
[2018-06-03] MEDS ORDERED: RIVAROXABAN 20 MG TAB PO SCH (09:00)
[2018-06-03] MEDS ORDERED: AMIODARONE HCL 200 MG TAB PO SCH (09:00)
[2018-06-03] MEDS ORDERED: ASPIRIN EC 81 MG TAB PO SCH (09:00)
[2018-06-03] MEDS ORDERED: CLOPIDOGREL BISULFATE 75 MG TAB PO SCH (09:00)
[2018-06-03] MEDS ORDERED: EPLERENONE 25 MG TAB PO SCH (09:00)
[2018-06-03] MEDS ORDERED: ATORVASTATIN CALCIUM 40 MG TAB PO SCH (09:00)
[2018-06-03] MEDS ORDERED: glipiZIDE 5 MG TAB PO SCH (09:00)
[2018-06-03] MEDS ORDERED: CARVEDILOL 6.25 MG TAB PO SCH (18:00)
--- NOTE | 2018-06-03 19:01 | CPEKG ---
Test Reason : OPEN Blood Pressure : / mmHG Vent. Rate : 056 BPM Atrial Rate : 056 BPM P-R Int : 157 ms QRS Dur : 097 ms QT Int : 505 ms P-R-T Axes : 044 -33 095 degrees QTc Int : 488 ms Sinus rhythm Probable left atrial enlargement Left axis deviation Probable anteroseptal infarct, recent Lateral leads are also involved Confirmed by Alfonso Wallis ([id number]) on 06/03/2018 7:00:55 PM Referred By: NIA ROBERT Confirmed By:Alfonso Wallis
--- NOTE | 2018-06-03 19:01 | CPEKG ---
Test Reason : OPEN Blood Pressure : / mmHG Vent. Rate : 105 BPM Atrial Rate : 214 BPM P-R Int : 199 ms QRS Dur : 081 ms QT Int : 367 ms P-R-T Axes : 222 -79 066 degrees QTc Int : 486 ms Atrial flutter with varied AV block, Inferior infarct, old Abnormal lateral Q waves Anterior infarct, old Confirmed by Alfonso Wallis ([id number]) on 06/03/2018 7:01:08 PM Referred By: NAI ROBERT Confirmed By:Alfonso Wallis
[2018-06-04] MEDS ORDERED: LEVOTHYROXINE 150 MCG TAB PO SCH (06:00)
== END 2018-06-03 12:00 | disposition home or self-care (01) ==
LOC: FCATH 06:15
PROVIDERS: ATTEND Internal Medicine Interventional Cardiology
DX: I25.10 Atherosclerotic heart disease of native coronary artery without angina pectoris (principal); I25.5 Ischemic cardiomyopathy; I25.2 Old myocardial infarction; Z95.5 Presence of coronary angioplasty implant and graft; I48.91 Unspecified atrial fibrillation; Z79.01 Long term (current) use of anticoagulants; I10 Essential (primary) hypertension; E78.5 Hyperlipidemia, unspecified; E11.9 Type 2 diabetes mellitus without complications; E66.09 Other obesity due to excess calories
CPT/HCPCS: 92928; 93005; 93452; C1725; C1769; C1887; C1874; C9600; J0583; J1644; J2250; J3010; Q9967